=== PATIENT | female | born 1945 | race Caucasian/White ===

== ENCOUNTER → 2023-10-24 14:15 | Outpatient (BNVA) | payer MEDICARE, SELFPAY | PROVIDERS: PCP Internal Medicine; Referring Provider Internal Medicine; Visit Provider Psychiatry & Neurology Neurology | DX: R26.81 Unsteadiness on feet (principal); G62.9 Polyneuropathy, unspecified | CPT/HCPCS: 99205 ==

== ENCOUNTER → 2024-01-24 12:41 | Outpatient (BNVA) | payer MEDICARE, SELFPAY | PROVIDERS: PCP Internal Medicine; Referring Provider Internal Medicine; Visit Provider Psychiatry & Neurology Neurology | DX: R26.81 Unsteadiness on feet (principal); G62.9 Polyneuropathy, unspecified | CPT/HCPCS: 99214 ==